=== PATIENT | male | born 1990 | race Caucasian/White ===

== ENCOUNTER 2017-02-23 12:38 | Emergency (ER) | payer SELFPAY ==
[2017-02-23 12:34] LABS: URINE SOURCE CLEAN CATCH
[2017-02-23 12:40] LABS: URINE APPEARANCE CLOUDY; URINE BILIRUBIN NEG (NEG); URINE BLOOD NEG (NEG); URINE COLOR YELLOW; URINE GLUCOSE NEG (NEG); URINE KETONE NEG (NEG); URINE LEUKOCYTE ESTERASE 3+ (NEG); URINE NITRATE NEG (NEG); URINE PH 6.5 (5-8); URINE PROTEIN TRACE (NEG); URINE SPECIFIC GRAVITY 1.022 (1.003-1.035)
[2017-02-23 12:43] LABS: CULTURE INDICATED? YES; U HYALINE CASTS AUWI 0-2 /[LPF]; URINE BACTERIA AUWI NEG (NEGATIVE); URINE SQUAMOUS EPITHELIAL CELL NONE SEEN /[HPF]; UWBCS1 AUWI 200-300 (0-5)
[2017-02-25 00:05] LABS: CHLAMYDIA TRACH Not Detected (Not Detected); N GONOR Detected (Not Detected)
== END 2017-02-23 13:17 | disposition home or self-care (01) ==
LOC: CFTX 12:38
PROVIDERS: Nurse Practitioner
DX: A54.01 Gonococcal cystitis and urethritis, unspecified (principal); F90.9 Attention-deficit hyperactivity disorder, unspecified type; F17.210 Nicotine dependence, cigarettes, uncomplicated
CPT/HCPCS: 81003; 87086; 87491; 87591; 96372; 99283; J0696